=== PATIENT | female | born 1985 | race Caucasian/White ===

== ENCOUNTER 2019-04-02 22:56 | Emergency (ER) | payer OTHER ==
[2019-04-03] MEDS ORDERED: Ibuprofen TAB* 400 MG PO ONE (00:15)
--- NOTE | 2019-04-03 00:16 | ED ---
Lower Extremity - HPI Summary HPI Summary: Patient complains of knee pain starting tonight. Patient states she was doing a split while dancing and felt her knee pop out. States knee popped back in when she stood up. Denies prior history of same. Denies any other pain, injury or symptoms. - History of Current Complaint Chief Complaint: EDExtremityLower Stated Complaint: "FALL LEFT KNEE INJURY" Time Seen by Provider: 04/02/19 23:29 Hx Obtained From: Patient Mechanism Of Injury: Other Onset of Pain: Immediate Onset/Duration: Hours Severity Initially: Severe Severity Currently: Severe Pain Intensity: 8 Pain Scale Used: 0-10 Numeric Timing: Constant Location: Is Discrete @ Character Of Pain: Aching, Throbbing Associated Signs And Symptoms: Positive: Knee Pain Aggravating Factor(s): Standing, Ambulation, Movement, Weight Bearing Alleviating Factor(s): Rest Able to Bear Weight: Yes - Allergies/Home Medications Allergies/Adverse Reactions: Allergies Allergy/AdvReac Type Severity Reaction Status Date / Time shellfish derived Allergy Anaphylatic Verified 04/02/19 23:27 Shock PMH/Surg Hx/FS Hx/Imm Hx Endocrine/Hematology History: Denies: Hx Anticoagulant Therapy Cardiovascular History: Denies: Hx Pacemaker/ICD History: Denies: Hx Dialysis Sensory History: Denies: Hx Eye Prosthesis Opthamlomology History: Denies: Hx Legally Blind EENT History: Denies: Hx Deafness Neurological History: Denies: Hx Dementia Infectious Disease History: No Infectious Disease History: Denies: Traveled Outside the [place] in Last 30 Days - Family History Known Family History: Positive: Non-Contributory - Social History Alcohol Use: Occasionally Substance Use Type: Reports: None Smoking Status (MU): Never Smoked Tobacco Review of Systems Constitutional: Negative Eyes: Negative ENT: Negative Cardiovascular: Negative Respiratory: Negative Gastrointestinal: Negative Genitourinary: Negative Musculoskeletal: Other Skin: Negative Neurological: Negative Psychological: Normal All Other Systems Reviewed And Are Negative: Yes Physical Exam - Summary Physical Exam Summary: No swelling, erythema, ecchymosis, deformity noted to left knee. Calf soft nontender. Pain with palpation over patellar space. Triage Information Reviewed: Yes Vital Signs On Initial Exam: Initial Vitals Temp Pulse Resp BP Pulse Ox 99.9 F 109 16 108/71 96 04/02/19 22:57 04/02/19 22:57 04/02/19 22:57 04/02/19 22:57 04/02/19 22:57 Vital Signs Reviewed: Yes Appearance: Positive: Well-Appearing Skin: Positive: Warm Head/Face: Positive: Normal Head/Face Inspection Eyes: Positive: Normal Neck: Positive: Supple Respiratory/Lung Sounds: Positive: Clear to Auscultation Cardiovascular: Positive: Normal Abdomen Description: Positive: Nontender Musculoskeletal: Positive: Normal Neurological: Positive: Normal Psychiatric: Positive: Normal AVPU Assessment: Alert - Jelly Coma Scale Best Eye Response: 4 - Spontaneous Best Motor Response: 6 - Obeys Commands Best Verbal Response: 5 - Oriented Coma Scale Total: 15 Procedures - Sedation Patient Received Moderate/Deep Sedation with Procedure: No Diagnostics - Vital Signs Vital Signs Temp Pulse Resp BP Pulse Ox 04/02/19 22:57 99.9 F 109 16 108/71 96 - Laboratory Lab Statement: Any lab studies that have been ordered have been reviewed, and results considered in the medical decision making process. Lower Extremity Course/Dx - Course Course Of Treatment: Patient complains of knee pain starting tonight. Patient states she was doing a split while dancing and felt her knee pop out. States knee popped back in when she stood up. Denies prior history of same. Denies any other pain, injury or symptoms. Vital signs within normal limits. X-ray negative for fracture or dislocation. Likely patellar dislocation. Patient placed in knee immobilizer and provided with crutches. Follow-up with with [facility] - Diagnoses Provider Diagnoses: Patellar dislocation Discharge ED - Sign-Out/Discharge Documenting (check all that apply): Patient Departure - Discharge Plan Condition: Stable Disposition: HOME Patient Education Materials: Patellar Dislocation (ED) Referrals: No Primary Care Phys,NOPCP [Primary Care Provider] - Daya Chau MD [Medical Doctor] - Additional Instructions: Ice left for 15 minutes at a time. Take ibuprofen 400 mg every 6 hours as needed for pain. If symptoms do not improve in one week follow-up with orthopedics Dr. Chau for further evaluation. - Billing Disposition and Condition Condition: STABLE Disposition: Home
[2019-04-03 00:42] VITALS: BP 0/0
== END 2019-04-03 00:30 | disposition home or self-care (01) ==
LOC: ED 22:56
DX: S83.005A Unspecified dislocation of left patella, initial encounter (principal); M25.562 Pain in left knee; W19.XXXA Unspecified fall, initial encounter; Y92.9 Unspecified place or not applicable
CPT/HCPCS: 99282; A9270-GY